=== PATIENT | male | born 1975 | race Caucasian/White ===

== ENCOUNTER → 2025-01-16 | Outpatient (CLI) | payer BC, SELFPAY ==
[2025-01-16 08:57] LABS: Collection Type, Urine Clean Catch
[2025-01-16 09:35] LABS: Basophils # (Auto) 0.1 Thou/mm3 (0.0-0.2); Basophils % (Auto) 1 % (0-2.5); Eosinophils # (Auto) 0.1 Thou/mm3 (0.0-0.5); Eosinophils % (Auto) 1 % (0-10); Hematocrit 46.6 % (41.0-53.0); Hemoglobin 16.0 g/dL (13.5-16.0); Immature Granulocytes Auto 0.04 Thou/mm3 (0.00-0.00); Lymphocytes # (Auto) 1.4 Thou/mm3 (1.0-4.8); Lymphocytes % (Auto) 24 % (10-50); Mean Corpuscular HGB Conc 34.3 g/dl (31.0-37.0); Mean Corpuscular Hemoglobin 30.4 pg (25.0-35.0); Mean Corpuscular Volume 89 fL (80-100); Monocytes # (Auto) 0.5 Thou/mm3 (0.0-0.8); Monocytes % (Auto) 9 % (0-12); Neutrophils # (Auto) 4.0 Thou/mm3 (1.8-7.7); Neutrophils % (Auto) 65 % (37-80); Nucleated Red Blood Cell # 0.00 Thou/mm3 (0.00-0.00); Nucleated Red Blood Cell % 0 /100 WBC (0); Platelet Count 239 Thou/mm3 (140-440); RDW Standard Deviation 40.5 fL (35.1-43.9); Red Blood Count 5.26 Miln/mm3 (4.50-5.90); White Blood Count 6.1 Thou/mm3 (3.8-10.6)
[2025-01-16 09:43] LABS: Bilirubin,Urine Negative (Negative); Blood,Urine Negative (Negative); Clarity,Urine Clear (Clear/Hazy); Color,Urine Yellow (Lt Yel-Yel); Culture Indicated,Urine Not Indicated; Glucose, Urine Negative (Negative); Ketones,Urine Negative (Negative); Leukocyte Esterase,Urine Negative (Negative); Nitrite,Urine Negative (Negative); PH,Urine 6.0 (5.0-7.0); Protein,Urine Trace (Neg - Trace); RBC,Urine 1 /hpf (0-3); Specific Gravity,Urine 1.026 (1.001-1.035); Squamous Epithelial Cell,Urine < 1 /hpf (0-5); Urobilinogen,Urine Negative mg/dL (0.0-1.0); WBC,Urine 2 /hpf (0-5)
[2025-01-16 09:54] LABS: Prostate Specific Antigen 1.77 ng/mL (0-4.00)
[2025-01-16 10:04] LABS: Alanine Aminotransferase 33 U/L (10-49); Albumin, Serum 4.4 gm/dL (3.5-5.0); Albumin/Globulin Ratio 2.2 (1.2-2.2); Alkaline Phosphatase 85 U/L (46-116); Anion Gap 9 (7-16); Aspartate Amino Transferase 24 U/L (0-34); BUN/Creatinine Ratio 12 Ratio (12-20); Bilirubin,Total 0.6 mg/dL (0.3-1.2); Blood Urea Nitrogen 15 mg/dL (9-23); Calcium 10.1 mg/dL (8.3-10.6); Calcium (Corrected) 10.1 mg/dL (8.5-10.1); Carbon Dioxide 28.3 mMol/L (20.0-31.0); Cardiac Risk Estimate 5.7 RATIO (4.0-6.7); Chloride 106 mMol/L (98-107); Cholesterol 252 mg/dL (132-200); Creatinine (Component) 1.3 mg/dL (0.6-1.3); Globulin 2.0 gm/dL (2.3-3.5); Glucose 88 mg/dL (74-106); HDL Cholesterol 44 mg/dL (40-60); LDL Cholesterol,Calculated 185 mg/dL (0-130); Osmolality,Calculated 284 (275-295); Potassium 5.2 mMol/L (3.4-5.1); Sodium 143 mMol/L (136-145); Thyroid Stimulating Hormone 0.68 uIU/mL (0.55-4.78); Total Protein 6.4 gm/dL (5.7-8.2); Triglycerides 117 mg/dL (30-150); Vitamin D 25 Hydroxy Total 33.0 ng/mL (7.3-40.2); eGFR > 60 See Note
[2025-01-29 08:50] LABS: Testosterone, Free,Dialysis 69.7 pg/mL (35.0-155.0); Testosterone, Total, Dialysis 374 ng/dL (250-1100)
== END | disposition home or self-care (01) ==
PROVIDERS: PCP Nurse Practitioner Family; Referring Provider Nurse Practitioner Family; Visit Provider Nurse Practitioner Family
DX: Z00.00 Encounter for general adult medical examination without abnormal findings (principal); E03.9 Hypothyroidism, unspecified; R10.9 Unspecified abdominal pain; E55.9 Vitamin D deficiency, unspecified; Z79.899 Other long term (current) drug therapy; Z13.29 Encounter for screening for other suspected endocrine disorder; Z13.0 Encounter for screening for diseases of the blood and blood-forming organs and certain disorders involving the immune mechanism; E11.9 Type 2 diabetes mellitus without complications; R53.83 Other fatigue; Z12.5 Encounter for screening for malignant neoplasm of prostate; Z13.1 Encounter for screening for diabetes mellitus; N39.0 Urinary tract infection, site not specified
CPT/HCPCS: 36415; 80053; 80061; 81001; 82306; 84153; 84402; 84403; 84443; 85025

== ENCOUNTER → 2025-01-24 | Outpatient (CLI) | payer BC, SELFPAY ==
[2025-01-29 09:00] LABS: Fecal Globin Result NOT DETECTED (NOT DETECTED)
== END | disposition home or self-care (01) ==
LOC: SLDO 08:22
PROVIDERS: Referring Provider Nurse Practitioner Family; Visit Provider Nurse Practitioner Family
DX: Z00.00 Encounter for general adult medical examination without abnormal findings (principal); R10.9 Unspecified abdominal pain; Z13.0 Encounter for screening for diseases of the blood and blood-forming organs and certain disorders involving the immune mechanism; Z13.29 Encounter for screening for other suspected endocrine disorder; Z12.5 Encounter for screening for malignant neoplasm of prostate; N39.0 Urinary tract infection, site not specified; E03.9 Hypothyroidism, unspecified; E11.9 Type 2 diabetes mellitus without complications; R53.83 Other fatigue
CPT/HCPCS: 82274; G0328

== ENCOUNTER → 2025-01-24 | Outpatient (CLI) | payer BC, SELFPAY ==
[2025-01-24 11:49] LABS: Collection Type, Urine Clean Catch; Squamous Epithelial Cell,Urine 0 /hpf (0-5)
--- NOTE | 2025-01-24 12:05 | XR_ITS ---
Examination: CT abdomen and pelvis without contrast. Coronal 3-D reconstructions. Sagittal 2-D reconstructions. Date and time of exam:January 24, 2025 1222 hours INDICATIONS: Generalized abdominal pain beginning one week ago, comparison 01/29/2013 CTDI: vol (mGy): 8.62 DLP: (mGycm): 529 Technique: Axial images of the abdomen have been obtained, 3 mm slice thickness Intravenous contrast material has not been administered. Low dose protocols were performed. One or more of the following dose reduction techniques were used; automated exposure control, adjustment of the mA and/or KV according to patient size, use of iterative reconstruction technique. Findings: No focal liver or splenic lesions Absent gallbladder Focal area of fat inflammation in the anterior left abdomen, axial image 82, measuring 30 mm No renal or ureteral calculi, no hydronephrosis Normal appendix No bowel obstruction No diverticulitis Intact urinary bladder, urinary bladder wall thickening up to 10 mm Transverse prostate dimension 55 mm Moderate disc narrowing L5-S1 IMPRESSION: Focal area of fat inflammation in the anterior left abdomen, 30 mm, recommend one-week follow-up CT scan abdomen pelvis post contrast Urinary bladder wall thickening up to 10 mm, consider cystitis
[2025-01-24 12:07] LABS: Basophils # (Auto) 0.1 Thou/mm3 (0.0-0.2); Basophils % (Auto) 1 % (0-2.5); Eosinophils # (Auto) 0.1 Thou/mm3 (0.0-0.5); Eosinophils % (Auto) 1 % (0-10); Hematocrit 46.4 % (41.0-53.0); Hemoglobin 15.6 g/dL (13.5-16.0); Immature Granulocytes Auto 0.04 Thou/mm3 (0.00-0.00); Lymphocytes # (Auto) 1.5 Thou/mm3 (1.0-4.8); Lymphocytes % (Auto) 23 % (10-50); Mean Corpuscular HGB Conc 33.6 g/dl (31.0-37.0); Mean Corpuscular Hemoglobin 30.2 pg (25.0-35.0); Mean Corpuscular Volume 90 fL (80-100); Monocytes # (Auto) 0.5 Thou/mm3 (0.0-0.8); Monocytes % (Auto) 7 % (0-12); Neutrophils # (Auto) 4.4 Thou/mm3 (1.8-7.7); Neutrophils % (Auto) 67 % (37-80); Nucleated Red Blood Cell # 0.00 Thou/mm3 (0.00-0.00); Nucleated Red Blood Cell % 0 /100 WBC (0); Platelet Count 241 Thou/mm3 (140-440); RDW Standard Deviation 40.7 fL (35.1-43.9); Red Blood Count 5.17 Miln/mm3 (4.50-5.90); White Blood Count 6.5 Thou/mm3 (3.8-10.6)
[2025-01-24 12:16] LABS: Bilirubin,Urine Negative (Negative); Blood,Urine Negative (Negative); Clarity,Urine Clear (Clear/Hazy); Color,Urine Colorless (Lt Yel-Yel); Glucose, Urine Negative (Negative); Ketones,Urine Negative (Negative); Leukocyte Esterase,Urine Negative (Negative); Nitrite,Urine Negative (Negative); PH,Urine 6.5 (5.0-7.0); Protein,Urine Negative (Neg - Trace); RBC,Urine < 1 /hpf (0-3); Specific Gravity,Urine 1.008 (1.001-1.035); Urobilinogen,Urine Negative mg/dL (0.0-1.0); WBC,Urine 1 /hpf (0-5)
[2025-01-24 12:29] LABS: Alanine Aminotransferase 24 U/L (10-49); Albumin, Serum 4.4 gm/dL (3.5-5.0); Albumin/Globulin Ratio 1.8 (1.2-2.2); Alkaline Phosphatase 91 U/L (46-116); Anion Gap 11 (7-16); Aspartate Amino Transferase 21 U/L (0-34); BUN/Creatinine Ratio 8 Ratio (12-20); Bilirubin,Total 0.6 mg/dL (0.3-1.2); Blood Urea Nitrogen 9 mg/dL (9-23); Calcium 10.1 mg/dL (8.3-10.6); Calcium (Corrected) 10.1 mg/dL (8.5-10.1); Carbon Dioxide 27.3 mMol/L (20.0-31.0); Chloride 105 mMol/L (98-107); Creatinine (Component) 1.1 mg/dL (0.6-1.3); Globulin 2.5 gm/dL (2.3-3.5); Glucose 89 mg/dL (74-106); Osmolality,Calculated 282 (275-295); Potassium 4.2 mMol/L (3.4-5.1); Sodium 143 mMol/L (136-145); Total Protein 6.9 gm/dL (5.7-8.2); eGFR > 60 See Note
== END | disposition home or self-care (01) ==
PROVIDERS: PCP Nurse Practitioner Family; Referring Provider Nurse Practitioner Family; Visit Provider Nurse Practitioner Family
DX: N32.89 Other specified disorders of bladder (principal); Z00.00 Encounter for general adult medical examination without abnormal findings; Z13.89 Encounter for screening for other disorder; N39.0 Urinary tract infection, site not specified; R53.83 Other fatigue
CPT/HCPCS: 36415; 74176; 80053; 81001; 85025; 87086

== ENCOUNTER 2025-02-13 09:10 | Inpatient (IN) | payer OTHER, SELFPAY ==
[2025-02-13] VITALS (10 sets, daily range): BP systolic 109–140; BP diastolic 78–97; PULSE 70–85; RESP 13–97; TEMP 36.1–36.9; O2SAT 95–100; BMI 26.2; BMI 27.0
--- NOTE | 2025-02-13 | XR_ITS ---
Examinations: MRI Brain without intravenous contrast. MRA brain without intravenous contrast. MRA carotids without intravenous contrast 3-D vascular reconstructions Date and time of exam: January 20232024 1620 hours INDICATIONS: Stroke alert today, onset left-sided facial and upper extremity numbness Technique: Multiple axial and sagittal images of the brain have been obtained MRA brain carotid images without contrast obtained, including 3-D postprocessing, vascular maximum intensity projection images Findings: Sellaturcica is not enlarged. The optic chiasm and infundibular stalk are not remarkable. Prepontine and interpeduncular cisterns are not enlarged. No localized enlargement of the medulla or christopher. Fourth ventricle and cerebellar tonsils normal in position. Subacute hemorrhage is not seen. Fourth ventricle is midline. Mass in the cerebellopontine angle region is not evident. 7th and 8th nerve complexes exhibits symmetry. Globes are symmetrical with no retro-orbital mass. Increased white matter signal not present Diffusion-weighted images demonstrate no focus of restricted diffusion Mass-effect upon the ventricular system is not identified. MRA carotid images are degraded by artifacts MRA brain images no large vessel occlusions Impression: Negative for acute hemorrhage, mass effect or midline shift No acute infarcts No findings diagnostic for demyelinating disease
--- NOTE | 2025-02-13 09:15 | EKG_ITS ---
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
--- NOTE | 2025-02-13 09:16 | XR_ITS ---
Examination: AP chest single view Technique one AP portable upright chest single view Date and time: February 13, 2025 1011 hours, comparison 01/30/2013 INDICATIONS: Stroke alert today FINDINGS: Normal heart size. No aspiration pneumonia. The osseous structures are intact IMPRESSION: No active disease
--- NOTE | 2025-02-13 09:16 | XR_ITS ---
Examination: CTA carotids with intravenous contrast CTA brain, head with intravenous contrast. 2-D sagittal, coronal reconstructions. 3-D reconstructions. Exam date and time: February 13, 2025, 0935 hours INDICATIONS: Stroke alert, bilateral facial numbness today CTDI: vol (mGy) 39 DLP: (mGycm) 484 Technique: Multiple CTA axial brain, head carotid images post intravenous contrast injection 75 cc, Isovue-370. 2-D sagittal, coronal reconstructions. 3-D reconstructions, 3-D post processing including vascular maximum intensity projection images. Low dose protocols were performed. One or more of the following dose reduction techniques were used; automated exposure control, adjustment of the mA and/or KV according to patient size, use of iterative reconstruction technique. Findings: No significant common carotid carotid bifurcation or internal carotid artery stenoses Dominant left vertebral artery in the neck, no critical vertebral artery stenoses Intracranial vertebral arteries basilar artery posterior cerebral branches fill without occlusions Juxtasellar portions internal carotid arteries intact M1 segments middle cerebral arteries middle cerebral artery trifurcation vessels and anterior cerebral arteries fill with no large vessel occlusions IMPRESSION: No significant neck arterial stenoses No cerebral large chest arterial occlusions or thrombus
--- NOTE | 2025-02-13 09:16 | XR_ITS ---
Examination: CT brain head without contrast. 2-D sagittal coronal reconstructions Date and time of exam:February 13, 2025 0930 hours INDICATIONS: Stroke alert, onset bilateral facial numbness today CTDI: vol (mGy):52 DLP: (mGycm):1057 Technique: Multiple CT axial sections of the brain have been obtained, 5 mm slice thickness. Contrast has not been administered. 2-D sagittal, coronal reconstructions have been obtained Low dose protocols were performed. One or more of the following dose reduction techniques were used; automated exposure control, adjustment of the mA and/or KV according to patient size, use of iterative reconstruction technique. Findings: No significant ventricular enlargement. Intra-axial or extra-axial hemorrhage density is not seen. No mass effect or midline shift Basal cisterns are not remarkable. Fourth ventricle is midline. Cranial vault intact. Impression: Negative for acute hemorrhage, mass effect or midline shift
--- NOTE | 2025-02-13 09:17 | XR_ITS ---
Examination: CTA chest, with intravenous contrast. CTA abdomen, with intravenous contrast. CTA pelvis, with intravenous contrast. 2-D sagittal and coronal reconstructions. 3-D reconstructions. Date and time of exam: February 13, 2025, 0942 hours INDICATIONS: Coughing shortness of breath congestion, abdominal pain today CTDI vol (mgy) 20.7 DLP (MGycm) 929 Technique: Multiple CTA images, 2.0 mm slice thickness, obtained chest, abdomen, pelvis, with the high-resolution 64 slice scanner. 100 cc Isovue-370 is administered intravenously. Sagittal and coronal 2-D reconstructions are obtained. 3-D reconstructions, angiographic images are obtained. 3-D postprocessing, including vascular maximum intensity projections. Low dose protocols were performed. One or more of the following dose reduction techniques were used; automated exposure control, adjustment of the mA and/or KV according to patient size, use of iterative reconstruction technique. Findings: No thoracic aortic aneurysmal dilatation or dissection Pulmonary artery segments are not enlarged. No pulmonary artery emboli No paratracheal tracheobronchial or bronchopulmonary adenopathy. No coronary artery calcification. No pneumonia or pulmonary edema or pleural disease No visualized liver or splenic lesion Mild splenomegaly AP dimension 13 cm Absent gallbladder No extra hepatic biliary tract dilatation No pancreatic mass No abdominal aortic aneurysm dilatation or dissection No hydronephrosis No bowel obstruction Normal appendix No diverticulitis Normal seminal vesicles No prostatomegaly No bladder mass or bladder calculi Mild osteopenia IMPRESSION: Negative for pulmonary artery emboli No thoracic or abdominal aortic aneurysm dilatation or dissection No pneumonia, pulmonary edema or pleural disease. Mild splenomegaly. No extrahepatic biliary tract dilatation. Negative for pancreatitis No renal or ureteral calculi, no hydronephrosis Normal appendix
--- NOTE | 2025-02-13 09:17 | EDNOTE_ITS ---
ED Weakness RME/HPI General Chief complaint: Shortness of Breath/Dyspnea Stated complaint: CHEST PAIN, SOB, LT ARM NUMBNESS Time Seen by Provider: 02/13/25 09:14 Arrival date/time: 02/13/25 09:10 Limitations: no limitations RME / HPI RME / HPI Narrative: Patient is a 49-year-old male is in emerged from concerns for left-sided facial and upper extremity numbness started approximately 10 minutes prior to patient also complaining of chest pain and difficulty catching his breath. Denies fevers chills nausea vomiting cough runny nose dysuria hematuria melena bloody stools. Patient states that he spoke to his primary care doctor, and was told to come to the emergency department for stroke evaluation. Patient states that he has also had some abdominal discomfort that he has been in the process of being worked up with with his primary care doctor. 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 Patient chews tobacco. No smoking, no alcohol no drugs. No recent travel no sick contact. Related Data Home Medications ?Medication ?Instructions ?Recorded ?Confirmed alprazolam 0.5 mg tablet 0.5 mg PO BID PRN anxiety 02/13/25 atorvastatin 10 mg tablet 10 mg PO QDAY 02/13/2502/13 Allergies Allergy/AdvReac Type Severity Reaction Status Date / Time No Known Allergies Allergy Unverified 02/13/25 09:16 Review of Systems Review of Systems Systems Reviewed: All systems reviewed, normal except as documented Past Medical History Past Medical History CARDIAC: Positive Hypercholesterolemia GASTROINTESTINAL: Positive Gastrointestinal Disorders (INFLAMMATED BOWEL) and Pancreatitis Social History SMOKING STATUS: Never smoker ED Exam General Limitations: Present no limitations General appearance: Present alert, in no apparent distress and other Head Head exam: Present atraumatic and normocephalic Eye Eye exam: Present normal appearance, PERRL and EOMI ENT ENT exam: Present normal exam, normal oropharynx and mucous membranes moist Neck Neck exam: Present normal inspection and full ROM; Absent meningismus Chest Chest inspection: Present normal inspection and symmetric chest wall rise Respiratory Respiratory exam: Present normal lung sounds bilaterally; Absent respiratory distress, wheezes, stridor or accessory muscle use Cardiovascular Cardiovascular exam: Present normal rhythm Abdominal Exam Abdominal exam: Present soft; Absent distention, tenderness or guarding Extremities Exam Extremities exam: Present normal inspection and full ROM; Absent tenderness Neurological Exam Neurological exam: Present alert, oriented X3, CN II-XII intact, normal gait and motor sensory deficit (Decree sensation left face, left upper left lower extremity. 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 NOW Care 02/13/25 09:16 Active Continuous Pulse Oximetry NOW Care 02/13/25 09:16 Completed EKG (ED ONLY) *Do not use* NOW Care 02/13/25 09:15 Completed In and Out Catheter NEEDED Care 02/13/25 09:16 Active Insert IV NOW Care 02/13/25 09:16 Active NIH Stroke Scale now Care 02/13/25 09:16 Active NPO NOW Care 02/13/25 09:16 Active Neuro Check Q1HR Care 02/13/25 09:16 Active Nurse Swallow Screen x1 Care 02/13/25 09:16 Active Consult to Neurology / Tele-Neurology Routine Cons 02/13/25 09:[address] angio chest abdomen pelvis Stat Exams 02/13/25 09:[address] angio stroke protocol Stat Exams 02/13/25 09:[address] stroke protocol Stat Exams 02/13/25 09:16 Completed EKG (ED Only) Stat Exams 02/13/25 09:15 Draft XR chest 1V portable Stat Exams 02/13/25 09:16 Completed BNP [B-Type Natriuretic Peptide] Stat Lab 02/13/25 09:23 Completed CBC Stat Lab 02/13/25 09:23 Completed Comprehensive Metabolic Panel Stat Lab 02/13/25 09:23 Completed Drug Screen,Urine Stat Lab 02/13/25 11:00 Completed FLU A&B [Influenza A & B Rapid Panel] Stat Lab 02/13/25 11:26 Completed Magnesium Stat Lab 02/13/25 09:23 Completed Partial Thromboplastin Time Stat Lab 02/13/25 09:23 Completed Prothrombin Time with INR Stat Lab 02/13/25 09:23 Completed Troponin I Stat Lab 02/13/25 09:23 Completed Urinalysis, C/S if Indicated Stat Lab 02/13/25 11:00 Completed Aspirin Chew Med 02/13/25 09:15 Discontinued 162 mg PO X1 ONE Oxygen Delivery NOW RT 02/13/25 09:16 Completed Vital Signs Vital signs: Vital Signs Pulse Rate 84 02/13/25 09:23 Weakness MDM Narrative MDM Narrative:: Patient is a 49-year-old male seen emerged from concerns for left-sided body numbness as well as chest pain. Vital signs and exam as listed. Concern for stroke, ACS, arrhythmia, pulmonary embolus, dissection among others. Ordered labs, EKG, chest x-ray, CT angio chest abdomen pelvis. Also ordered stroke alert order set. Also provided an aspirin given patient's chest pain as well as stat EKG. EKG performed today at 919 in the morning, notable for sinus tachycardia, heart rate 102, normal intervals, nonspecific T wave changes, not a cardiac alert. Labs without any acute hematologic or significant metabolic abnormality, troponin not elevated. Urinalysis without evidence of infection. Drug screen negative. Viral swabs negative. Head CT, CT angio of the head and neck as well as chest abdomen pelvis unremarkable. Patient was evaluated by the teleneurologist, gave patient NIH of 1. Does not recommend tenecteplase however recommends admission for stroke workup. On reevaluation patient hemodynamically stable nondistressed feels better no longer having numbness to his left upper extremity. Patient admitted to the hospitalist service. He is hemodynamically stable not in distress updated patient and his family at bedside. Patient data External records reviewed:: [facility] previous records Clinical information provided by:: patient Social determinants that could affect healthcare access:: none Patient has the following chronic illnesses:: see mdm How is presenting disease/condition affected by chronic disease/condition?: exacerbated by Evaluation data The following diagnostics were reviewed and interpreted by me:: lab results, radiology exam(s) and EKG tracing(s) Lab and/or radiology exams considered but not ordered:: None Interpretation Summary: See Medications / Prescriptions Medications or Prescriptions considered but not ordered:: None Medication administrations:: Medication Administration History Acetaminophen (Acetaminophen 325 Mg Tablet) 650 mg PO Q6H PRN PRN Reason: Fever >100.1 and pain 1-3 Stop: 03/15/25 13:47 Aspirin (Aspirin Ec 81 Mg Tabec) 81 mg PO QDAY KHARI Stop: 03/16/25 08:59 Atorvastatin Calcium (Atorvastatin Calcium 20 Mg Tablet) 40 mg PO HS KHARI Stop: 03/15/25 20:59 Heparin Sodium (Porcine) (Heparin Sod Inj 5000 Unit/Ml Vial) 5,000 unit SC Q12HR KHARI Stop: 02/27/25 20:59 Magnesium Sulfate (Magnesium Sulfate Ivpb) 4 gm in 50 mls @ 12.5 mls/hr IV X1 ONE Stop: 02/13/25 19:29 Nicotine (Nicotine Patch 7 Mg/24 Hr Patch.Td24) 7 mg TOP QDAY KHARI Stop: 03/16/25 08:59 Discontinued Medications Acetaminophen (Acetaminophen 325 Mg Tablet) 650 mg PO Q6H PRN PRN Reason: Fever >101.5 and pain 1-3 Stop: 03/15/25 13:47 Aspirin (Aspirin 81 Mg Chew) 162 mg PO X1 ONE Stop: 02/13/25 09:16 Last Admin: 02/13/25 09:21 Dose: 162 mg Documented By: VL See above Consultations Consultation(s) initiated? (list below): Yes Consultation #1 (Physician, Specialty, Details): I spoke with teleneurologist Dr. Yeh. States patients lkwt is above 4.5h and out of TNK window. Time: 09:54 Diagnosis Weakness Differential Diagnosis: anemia, hypothyroidism, sepsis, dehydration and other (CVA, TIA ) Most likely diagnosis given after review of the tests above:: Left sided numbness Chest pain Admission Indicated Admission indicated?: indicated Admission Request Was there a request for admission?: Yes Admission Attestation Admission request attestation: Discussed case with Hospitalist service regarding admission. Discussed patients ED course, exam findings, labs, and radiology results. The Hospitalist [agrees] to accept the patient for admission. Disposition Plan Disposition Plan: Admit Critical Care Time Critical Care Time Critical Care Time: Yes Total Critical Care Time (min.): 30 Attestation: I spent 30 minutes of critical care time with this patient not including reportable procedures. There was an acute impairment of an organ system with a high probability of imminent or life threatening deterioration in the patient's condition. Interventions and changes required in the course of therapy are located in the chart. Time involved was spent in direct patient care, reviewing ancillary data, old records, consulting with decision makers, EMS, other docto rs, giving orders and documenting. Discharge Plan Plan Patient Disposition: Admit Acute Care w/in Hospital Problem List Clinical Impression: Left sided numbness, Chest pain
[2025-02-13] MEDS: ASPIRIN 81 MG CHEW 162 MG PO (09:21)
[2025-02-13 09:35] LABS: Basophils # (Auto) 0.0 Thou/mm3 (0.0-0.2); Basophils % (Auto) 1 % (0-2.5); Eosinophils # (Auto) 0.1 Thou/mm3 (0.0-0.5); Eosinophils % (Auto) 1 % (0-10); Hematocrit 46.3 % (41.0-53.0); Hemoglobin 15.9 g/dL (13.5-16.0); Immature Granulocytes Auto 0.03 Thou/mm3 (0.00-0.00); Lymphocytes # (Auto) 1.5 Thou/mm3 (1.0-4.8); Lymphocytes % (Auto) 26 % (10-50); Mean Corpuscular HGB Conc 34.3 g/dl (31.0-37.0); Mean Corpuscular Hemoglobin 30.2 pg (25.0-35.0); Mean Corpuscular Volume 88 fL (80-100); Monocytes # (Auto) 0.4 Thou/mm3 (0.0-0.8); Monocytes % (Auto) 7 % (0-12); Neutrophils # (Auto) 3.6 Thou/mm3 (1.8-7.7); Neutrophils % (Auto) 64 % (37-80); Nucleated Red Blood Cell # 0.00 Thou/mm3 (0.00-0.00); Nucleated Red Blood Cell % 0 /100 WBC (0); Platelet Count 216 Thou/mm3 (140-440); RDW Standard Deviation 39.4 fL (35.1-43.9); Red Blood Count 5.27 Miln/mm3 (4.50-5.90); White Blood Count 5.6 Thou/mm3 (3.8-10.6)
[2025-02-13 09:47] LABS: B-Type Natriuretic Peptide < 20 pg/mL (0-100)
[2025-02-13 09:48] LABS: Alanine Aminotransferase 48 U/L (10-49); Albumin, Serum 4.7 gm/dL (3.5-5.0); Albumin/Globulin Ratio 2.1 (1.2-2.2); Alkaline Phosphatase 99 U/L (46-116); Anion Gap 7 (7-16); Aspartate Amino Transferase 26 U/L (0-34); BUN/Creatinine Ratio 9 Ratio (12-20); Bilirubin,Total 0.8 mg/dL (0.3-1.2); Blood Urea Nitrogen 10 mg/dL (9-23); Calcium 9.6 mg/dL (8.3-10.6); Calcium (Corrected) 9.6 mg/dL (8.5-10.1); Carbon Dioxide 26.3 mMol/L (20.0-31.0); Chloride 106 mMol/L (98-107); Creatinine (Component) 1.1 mg/dL (0.6-1.3); Globulin 2.2 gm/dL (2.3-3.5); Glucose 109 mg/dL (74-106); Magnesium 1.7 mg/dL (1.6-2.6); Osmolality,Calculated 277 (275-295); Potassium 4.0 mMol/L (3.4-5.1); Sodium 139 mMol/L (136-145); Total Protein 6.9 gm/dL (5.7-8.2); Troponin I < 0.002 ng/mL (0.0-0.045); eGFR > 60 See Note
--- NOTE | 2025-02-13 09:55 | PD.TNEURO ---
Tele Neuro Consultation Consultation Date 02/13/25 Most Recent Vital Signs Last Vital Signs Pulse 84 02/13/25 09:23 Consultation Narrative [facility] Tele[facility]urology Consult [facility] Patient Name:???NUZHAT SILVA Date of :???1975 Identification Number:??? Date of Service:???02/13/2025 09:40:14 Diagnosis:?R20.2 - Paresthesia of skin Impression: ?49 y/o man with h/o hyperlipidemia and anxiety, panic attacks presents to the ED chest pain, shortness of breath and left sided tingling and numbness. NIHSS 1 for left arm numbness. Chest pain and dissection work-up in progress. Our recommendations are outlined below. Recommendations: ? Stroke/Telemetry Floor ? Neuro Checks ? Bedside Swallow Eval ? DVT Prophylaxis ? IV Fluids, Normal Saline ? Head of Bed 30 Degrees ? Euglycemia and Avoid Hyperthermia (PRN Acetaminophen) ?ASA 81 if no contraindication Sign Out: ? Discussed with Emergency Department Provider Advanced Imaging: Advanced Imaging Deferred because: Advanced Imaging not obtained at this time. Reason: Case discussed with Dr. Daniel. NIHSS 1. Low suspicion for LVO given the clinical presentation and current clinical exam. Can reconsider advanced neuroimaging if patient's symptoms recur or worsen or develops new symptoms. Cardiopulmonary work-up to take precedence as per my discussion with Dr. Darnell Metrics: Last Known Well: 02/12/2025 23:00:00 Dispatch Time: 02/13/2025 09:39:13 Arrival Time: 02/13/2025 09:11:00 Initial Response Time: 02/13/2025 09:41:35Symptoms: chest pain, shortness of breath and left sided tingling and numbness. Initial patient interaction: 02/13/2025 09:45:24 NIHSS Assessment Completed: 02/13/2025 09:49:55Patient is not a candidate for Thrombolytic. Thrombolytic Medical Decision: 02/13/2025 09:49:56Patient was not deemed candidate for Thrombolytic because of following reasons: LKW outside 4.5 hr window. . other diagnosis suspected patient reports chest pain (dissection work-up in progress). CT Head: I personally reviewed all the CT images that were available to me and it showed: No acute hemorrhage. No large territory acute ischemic stroke. Primary Provider Notified of Diagnostic Impression and Management Plan on: 02/13/2025 09:54:42 History of Present Illness:Patient is a 49 year old Male. Patient was brought by private transportation with symptoms of chest pain, shortness of breath and left sided tingling and numbness. 49 y/o man with h/o hyperlipidemia and anxiety, panic attacks presents to the ED chest pain, shortness of breath and left sided tingling and numbness. Emergent telestroke consult requested. He reports he woke up this morning not feeling well. Last known well at 2300 as per the patient. He reports he similar episodes with panic attacks. He reports multiple episodes over the past month. He reports he was worked up at outside hospital in [place], but was not given a cause. NIHSS 1 for left arm numbness. CT brain reviewed and case discussed with the ED attending (Dr. Daniel). Past Medical History: Other PMH:? as per HPI Medications: No Anticoagulant use? No Antiplatelet use Reviewed EMR for current medications Allergies:? NKDA Social History: Smoking: Former Alcohol Use: No Drug Use: No Family History: There is no family history of premature cerebrovascular disease pertinent to this consultation ROS : 14 Points Review of Systems was performed and was negative except mentioned in HPI. Past Surgical History: There Is No Surgical History Contributory To Today?s Visit Examination: BP(140/97),?Pulse(94),?Blood Glucose(110) 1A: Level of Consciousness - Alert; keenly responsive?+ 0 1B: Ask Month and Age - Both Questions Right?+ 0 1C: Blink Eyes & Squeeze Hands - Performs Both Tasks?+ 0 2: Test Horizontal Extraocular Movements - Normal?+ 0 3: Test Visual Lind - No Visual Loss?+ 0 4: Test Facial Palsy (Use Grimace if Obtunded) - Normal symmetry?+ 0 5A: Test Left Arm Motor Drift - No Drift for 10 Seconds?+ 0 5B: Test Right Arm Motor Drift - No Drift for 10 Seconds?+ 0 6A: Test Left Leg Motor Drift - No Drift for 5 Seconds?+ 0 6B: Test Right Leg Motor Drift - No Drift for 5 Seconds?+ 0 7: Test Limb Ataxia (FNF/Heel-Fitch) - No Ataxia?+ 0 8: Test Sensation - Mild-Moderate Loss: Less Sharp/More Dull?+ 1 9: Test Language/Aphasia - Normal; No aphasia?+ 0 10: Test Dysarthria - Normal?+ 0 11: Test Extinction/Inattention - No abnormality?+ 0 NIHSS Score:?1 Pre-Morbid Modified [place] Scale: 0 Points = No symptoms at all Spoke with :?Dr. Daniel This consult was conducted in real time using interactive audio and video technology. Patient was informed of the technology being used for this visit and agreed to proceed. Patient located in hospital and provider located at home/office setting. Patient is being evaluated for possible acute neurologic impairment and high probability of imminent or life-threatening deterioration. I spent total of 18 minutes providing care to this patient, including time for face to face visit via telemedicine, review of medical records, imaging studies and discussion of findings with providers, the patient and/or family. Dr Eliecer Yeh [facility] For Inpatient follow-up with [facility] physician please call [facility] at . As we are not an outpatient service for any post hospital discharge needs please contact the hospital for assistance. If you have any questions for the [facility] physicians or need to reconsult for clinical or diagnostic changes please contact us via [facility] at . Signature :?Eliecer Yeh
[2025-02-13 10:23] LABS: INR 1.0 (0.9-1.3); Partial Thromboplastin Time 28.6 Seconds (22.0-36.0); Prothrombin Time 11.2 Seconds (9.0-12.2)
--- NOTE | 2025-02-13 11:05 | PC.NURSE ---
PATIENT WALKED IN TO ED FOR SHORTNESS OF BREATH, NUMBNESS IN FACE AND LEFT ARM AND DIZZINESS THAT STARTED AT 0850ISH. PATIENT STATES HE TOOK A XANAX BEFORE HE CAME IN DUE TO POSSIBLE ANXIETY ATTACK. PATIENT VITALS STABLE. STROKE ALERT INITIATED AT 0922. PATIENT STATES SYMPTOMS HAVE NOW RESOLVED MOSTLY BUT STILL A LITTLE NUMB PATIENT ALERT AND ORIENTED X4.
[2025-02-13 11:09] LABS: Collection Type, Urine Clean Catch; Squamous Epithelial Cell,Urine 0 /hpf (0-5); WBC,Urine 0 /hpf (0-5)
[2025-02-13 11:16] LABS: Bilirubin,Urine Negative (Negative); Blood,Urine Negative (Negative); Clarity,Urine Clear (Clear/Hazy); Color,Urine Colorless (Lt Yel-Yel); Culture Indicated,Urine Not Indicated; Glucose, Urine Negative (Negative); Ketones,Urine Negative (Negative); Leukocyte Esterase,Urine Negative (Negative); Nitrite,Urine Negative (Negative); PH,Urine 7.0 (5.0-7.0); Protein,Urine Negative (Neg - Trace); RBC,Urine < 1 /hpf (0-3); Specific Gravity,Urine 1.032 (1.001-1.035); Urobilinogen,Urine Negative mg/dL (0.0-1.0)
[2025-02-13 11:23] LABS: Amphetamine/Methamp Scrn,U Negative (Negative); Barbiturate Screen,Urine Negative (Negative); Benzodiazepines Screen,Urine Negative (Negative); Benzoylecgonine Screen, Ur Negative (Negative); Fentanyl Screen,Urine Negative (Negative); Opiate Screen,Urine Negative (Negative); THC Screen,Urine Negative (Negative)
[2025-02-13 12:17] LABS: Influenza A Ag Negative; Influenza B Ag Negative
--- NOTE | 2025-02-13 14:07 | PD.RESCONSUL ---
HPI Data of Consult Consult date: 02/13/25 Primary Care Provider: Physician No Primary/Family Consult Narrative Reason for consult: stroke w/up History of present illness: This patient is a 49-year-old male with past medical history of hyperlipidemia and anxiety presented to the ED on 02/13/2025 with chief complaint of chest pain, shortness of breath and left-sided tingling and numbness. Patient has a history of panic attacks and reported that he had similar episodes before. He also got worked up outside hospital in [place] but was not given a cause. NIH score on arrival was 1. Low suspicion for LVO was given the clinical presentation and current clinical exam. Last well-known time 23:00. Arrival time 9:11. Patient was not deemed candidate for thrombolytic because of LKW outside 4.5-hour window. Patient stated that 3 weeks ago he had a anxiety attack in [place] where he was given Xanax. He has been seeing a chiropractor sooner for his joint problems including ribs and left hip. He also informed that he had an abdominal infection for which he was due for colonoscopy and ultrasound due to sharp abdominal pain without any bowel problems. His PCP is Kat. He stated that numbness started in left arm and left face lasting for 1 to 2 hours and has subsided now. He stated that he had a history of pancreatitis in the past in 2003. He received testosterone injections due to lack of energy last year. He does have a history of humeral fracture but did not had any surgery. Past medical history as above Past surgical history: Achilles tendon repair, cholecystectomy 2011 SH: Use nicotine pouch 3 mg 6 times a day, drinks alcohol occasionally. No history of illicit drug use. Allergies: NKDA Family history: Grandfather had cancer unknown. Home medications: Metamucil 3 tablets daily, Lipitor, Flexeril once at night, Xanax as needed ED course: Labs revealed hemoglobin stable. Chemistry panel unremarkable. Kidney function remained stable. Chest x-ray showed no active disease. Head CT was unremarkable. Head and neck CTA was negative for neck arterial stenosis or cerebral large arterial occlusion. CTA only showed mild splenomegaly. EKG showed sinus tachycardia with QTc 448. No acute ST-T changes. Aspirin 162 mg x 1 was given. MRI brain only showed chronic white matter changes and is negative for stroke. Pending echo.Notify provider if SBP greater than 220 and DBP greater than 120 in first 24 hours. Recommended to continue statin therapy and DC aspirin as less likely to be stroke. cc:: cc: Review of Systems Review of Systems Systems Reviewed: All systems reviewed, normal except as documented Past Medical History Past Medical History CARDIAC: Positive Hypercholesterolemia GASTROINTESTINAL: Positive Gastrointestinal Disorders (INFLAMMATED BOWEL) and Pancreatitis Social History SMOKING STATUS: Never smoker Exam Vital Signs Temp Pulse Resp BP Pulse Ox O2 Del Method 97.8 F 74 15 109/88 H 98 Room Air 02/13/25 12:36 02/13/25 12:36 02/13/25 12:36 02/13/25 12:36 02/13/25 12:36 02/13/25 12:36 Narrative Exam GENERAL APPEARANCE: AxOx4, generally well-appearing male no acute distress. HEENT: NC, AT. MMM. EOMI, clear conjunctiva, oropharynx clear. NECK: Supple without lymphadenopathy. No stiffness or restricted ROM. HEART: Sinus tachycardia with regular rhythm, normal S1/S2, grade I systolic murmur heard in aortic region LUNGS: CTAB, moving air well. No crackles or wheezes are heard. ABDOMEN: Soft, nontender, nondistended with good bowel sounds heard. BACK: No CVAT, no obvious deformity. EXTREMITIES: Without cyanosis, clubbing or edema. NEUROLOGICAL: Grossly nonfocal. Alert and oriented, moving all 4 extremities. CN not formally tested but appear grossly intact. Observed to ambulate with normal gait. Skin: Warm and dry without any rash. Psych: Mildly anxious with appropriate mood and affect Results Labs 02/13/25 09:23 02/13/25 09:23 Labs: Short CBC 02/13/25 Range/Units 09: WBC 5.6 (3.8-10.6) Thou/mm3 Hgb 15.9 (13.5-16.0) g/dL Hct 46.3 (41.0-53.0) % Plt Count 216 (140-440) Thou/mm3 BMP 02/13/25 09:23 Sodium 139 Potassium 4.0 Chloride 106 Carbon Dioxide 26.3 BUN 10 Creatinine 1.1 Glucose 109 H Calcium 9.6 Cardiac Enzymes 02/13/25 Range/Units 09: Troponin I < 0.002 (0.0-0.045) ng/mL Liver Function 02/13/25 Range/Units 09:23 Total Bilirubin 0.8 (0.3-1.2) mg/dL AST 26 (0-34) U/L ALT 48 (10-49) U/L Alkaline Phosphatase 99 (46-116) U/L Albumin 4.7 (3.5-5.0) gm/dL Urine 02/13/25 Range/Units 11:00 Urine Color Colorless A (Lt Yel-Yel) Urine Clarity Clear (Clear/Hazy) Urine pH 7.0 (5.0-7.0) Ur Specific [employer] 1.032 (1.001-1.035) Urine Protein Negative (Neg - Trace) Urine Glucose (UA) Negative (Negative) Quality Measures Quality Measures stroke Suspected type of Stroke: Non Acute Last known well (date): 02/12/25 Last known well (time): 23:00 Tenecteplase given: Reason(s) Tenecteplase not given: Outside the time window not given Rehab services: PT evaluation ordered VTE Prophylaxis: pharmaceutical Antithrombotic by day 2:: not indicated (describe) Statin ordered: <75 y/o high intensity dose Anticoagulation ordered for A-fib or flutter (current or hx): not indicated Medications Home Medications and Allergies Home Medications ?Medication ?Instructions ?Recorded ?Confirmed ?Type alprazolam 0.5 mg tablet 0.5 mg PO BID PRN anxiety 02/13/25 02/13/25 History atorvastatin 10 mg tablet 10 mg PO QDAY 02/13/25 02/13/25 History Allergies Allergy/AdvReac Type Severity Reaction Status Date / Time No Known Allergies Allergy Unverified 02/13/25 09:16 Visit Medications Acetaminophen (Acetaminophen 325 Mg Tablet) 650 mg PO Q6H PRN PRN Reason: Fever >101.5 and pain 1-3 Stop: 03/15/25 13:47 Aspirin (Aspirin Ec 81 Mg Tabec) 81 mg PO QDAY KHARI Stop: 03/16/25 08:59 Heparin Sodium (Porcine) (Heparin Sod Inj 5000 Unit/Ml Vial) 5,000 unit SC Q12HR KHARI Stop: 02/27/25 20:59 Discontinued Medications Aspirin (Aspirin 81 Mg Chew) 162 mg PO X1 ONE Stop: 02/13/25 09:16 Last Admin: 02/13/25 09:21 Dose: 162 mg Assessment & Plan Plan This patient is a 49-year-old male with past medical history of hyperlipidemia and anxiety presented to the ED on 02/13/2025 with chief complaint of chest pain, shortness of breath and left-sided tingling and numbness. NIHS score on arrival was 1. Admitted for stroke workup. #Workup for stroke Patient presented with numbness and tingling in left arm and left face lasted for 1 to 2 hours associated with chest pain and shortness of breath. NIHSS score 1. Low suspicion for LVO was given the clinical presentation and current clinical exam. Last well-known time 23:00. Arrival time 9:11. Patient was not deemed candidate for thrombolytic because of LKW outside 4.5-hour window. Aspirin 162 mg x 1 given in the ED. Plan: MRI brain only showed chronic white matter changes and is negative for stroke. Pending echo.Notify provider if SBP greater than 220 and DBP greater than 120 in first 24 hours. Recommended to continue statin therapy and DC aspirin as less likely to be stroke. Notify provider if SBP greater than 220 and DBP greater than 120 in first 24 hours #History of hyperlipidemia #History of anxiety with panic attacks #Active nicotine use #History of testosterone injection use for lack of energy #History of disc bulge L4-L5 on Flexeril Rest of the management as per primary care team. Plan of care discussed with neurologist, Dr Eryn Abarca MD, PGY 3 Attending Provider Attestation/Addendum I personally have seen and examined the patient at the bedside and agree with resident findings and assessment and plan of care. Presenting symptoms are most likely consistent with anxiety rather than TIA or stroke. Reassurance given to the patient regarding the negative workup. Patient is advised to continue with statin. He does not need to be on antiplatelet therapy.
--- NOTE | 2025-02-13 15:10 | PD.RESHP ---
Documentation for date of: 02/13/25 HPI History of Present Illness Chief complaint: Left face and arm numbness History of present illness: 49-year-old male with past medical history of anxiety, nicotine use, testosterone use, hyperlipidemia, cholecystectomy status post gallstone pancreatitis presented to the ED on 02/13 with episode of left face and arm numbness. Patient states that symptoms started sometime around 8:30 AM and have been persistent since he has presented to the ED. Patient denies having any changes in vision, hearing or any upper or lower extremity weakness. Of note, patient had similar symptoms about 3 weeks ago and was seen at [facility] at which point he was observed and told that he has anxiety, given Xanax and discharged from the ED. Additionally, patient was seen by chiropractor about 2 weeks ago at which point he was getting an adjustment on his neck and states that he had similar numbness during the adjustment. Patient denies having any family history of stroke but patient's mother at bedside states that patient's uncle from [place] in his 50s. Patient otherwise denies having any other concerning symptoms such as chest pain, shortness of breath, orthopnea, paroxysmal nocturnal dyspnea or lower extremity edema. 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 Labs were largely unremarkable other than glucose of 109, magnesium 1.7, troponin less than 0.002. Urinalysis does not show any signs of infection and U tox is negative. Chest x-ray did not show any active disease, head CT was negative, head/ neck CTA was also negative, CTA chest abdomen pelvis was largely negative other than mild splenomegaly and EKG showed sinus tachycardia without any concerning ST changes. Stroke alert was initiated in the ED as NIHSS score was 1, teleneurology assessed the patient and recommends admission and MRI brain for stroke rule out. Teleneurology did not recommend TNK use as a result of their assessment. Patient will be admitted for stroke rule out with neurology consultation and close monitoring. Exam Vital Signs Temp Pulse Resp BP Pulse Ox O2 Del Method 97.8 F 74 19 127/87 H 98 Room Air 02/13/25 12:36 02/13/25 14:00 02/13/25 14:00 02/13/25 14:00 02/13/25 14:00 02/13/25 14:00 Narrative Exam Physical Exam: GENERAL: Awake, answering questions appropriately, appears stated age HEENT: NC/AT. Moist mucosa. PERRLA/EOMI. CARDIO: Heart RRR, no obvious murmurs, no JVD. PULM: No coughing or visible SOB. Lungs CTA B/L. GI: Abdomen soft, NT/ND, +BS. SKIN/MSK/EXT: No wounds/discoloration/rashes/edema/amputations. +Pedal pulses present B/L. NEURO: Oriented x3, cranial nerves II to XII grossly intact, Moves extremities x4, upper and lower extremity muscle strength 5 out of 5, sensations intact bilaterally with mild diminishing noted on left two thirds of face and left upper extremity Results: Labs 02/14/25 06:15 02/14/25 06:15 Labs: Short CBC 02/13/25 Range/Units 09:23 WBC 5.6 (3.8-10.6) Thou/mm3 Hgb 15.9 (13.5-16.0) g/dL Hct 46.3 (41.0-53.0) % Plt Count 216 (140-440) Thou/mm3 BMP 02/13/25 09:23 Sodium 139 Potassium 4.0 Chloride 106 Carbon Dioxide 26.3 BUN 10 Creatinine 1.1 Glucose 109 H Calcium 9.6 Cardiac Enzymes 02/13/25 Range/Units 09:23 Troponin I < 0.002 (0.0-0.045) ng/mL Liver Function 02/13/25 Range/Units 09:23 Total Bilirubin 0.8 (0.3-1.2) mg/dL AST 26 (0-34) U/L ALT 48 (10-49) U/L Alkaline Phosphatase 99 (46-116) U/L Albumin 4.7 (3.5-5.0) gm/dL Urine 02/13/25 Range/Units 11:00 Urine Color Colorless A (Lt Yel-Yel) Urine Clarity Clear (Clear/Hazy) Urine pH 7.0 (5.0-7.0) Ur Specific [place] 1.032 (1.001-1.035) Urine Protein Negative (Neg - Trace) Urine Glucose (UA) Negative (Negative) Quality Measures Quality Measures stroke Suspected type of Stroke: Non Acute Last known well (date): 02/12/25 Last known well (time): 23:00 Tenecteplase given: Reason(s) Tenecteplase not given: Outside the time window not given Rehab services: PT evaluation ordered VTE Prophylaxis: pharmaceutical Antithrombotic by day 2:: ordered Statin ordered: <75 y/o high intensity dose Anticoagulation ordered for A-fib or flutter (current or hx): not indicated Medications Home Medications and Allergies Home Medications ?Medication ?Instructions ?Recorded ?Confirmed ?Type alprazolam 0.5 mg tablet 0.5 mg PO BID PRN anxiety 02/13/25 02/13/25 History Allergies Allergy/AdvReac Type Severity Reaction Status Date / Time No Known Allergies Allergy Unverified 02/13/25 09:16 Visit Medications Acetaminophen (Acetaminophen 325 Mg Tablet) 650 mg PO Q6H PRN PRN Reason: Fever >100.1 and pain 1-3 Stop: 03/15/25 13:47 Aspirin (Aspirin Ec 81 Mg Tabec) 81 mg PO QDAY KHARI Stop: 03/16/25 08:59 Heparin Sodium (Porcine) (Heparin Sod Inj 5000 Unit/Ml Vial) 5,000 unit SC Q12HR KHARI Stop: 02/27/25 20:59 Discontinued Medications Acetaminophen (Acetaminophen 325 Mg Tablet) 650 mg PO Q6H PRN PRN Reason: Fever >101.5 and pain 1-3 Stop: 03/15/25 13:47 Aspirin (Aspirin 81 Mg Chew) 162 mg PO X1 ONE Stop: 02/13/25 09:16 Last Admin: 02/13/25 09:21 Dose: 162 mg Assessment & Plan Plan 49-year-old male with past medical history of anxiety, nicotine use, testosterone use, hyperlipidemia, cholecystectomy status post gallstone pancreatitis presented with episode of left face and arm numbness will be admitted for stroke rule out with neurology consultation and close monitoring. #Stroke/CVA rule out #Hyperlipidemia Differentials include: Stroke, cervical radiculopathy, trigeminal neuralgia but less likely to be Alexander's palsy, herpes zoster ASCVD score 4.2% Risk of cardiovascular event (coronary or stroke or non-fatal SD or stroke) in next 10 years. As noted above in HPI, patient is presenting with left-sided face and upper extremity numbness which has been on and off for the past 3 weeks Patient does have history of testosterone use in the past On examination, neuro exam is largely negative other than mild diminished sensations in left two thirds of face and left upper extremity In the ED, teleneurology assessed the patient with NIH score of [address] was negative, head/ neck CTA was also negative EKG showed sinus tachycardia without any concerning ST changes Plan: Neurology consulted, appreciate recommendations MRI stroke protocol Initiate aspirin 81 mg daily and atorvastatin 40 at bedtime Echo with bubble study Head of bed greater than 30, keep patient euglycemic and euthermic Every 4 neurochecks Physical therapy consultation #Splenomegaly As seen on CTA chest abdomen pelvis Patient denies having any concerning symptoms, abdominal pain CBC does not show any concerning findings or any elevated cell counts Plan: Follow-up outpatient, continue monitoring #Anxiety #Nicotine use Patient uses oral nicotine Patient is not on any anxiolytics at home, takes Xanax as needed Plan: Nicotine patch as needed Consider anxiolytics if necessary Health Maintenance: Lines: PIV Diet: Regular, pending nurse swallow screen Bowel: Not needed GI prophylaxis: Not needed DVT prophylaxis: Heparin subcu Dispo: Pending stroke workup, MRI and echo with bubble study Code: Full Patient seen and assessed with attending Dr. Evens Benavides DO PGY-2 Internal Medicine - [facility] Attending Provider Attestation/Addendum I have discussed and was present for the essential components of the history, physical examination, diagnosis, and treatment plan with the resident. I agree with the patient's care as documented by the resident and amended herein by me. Ashu Horner DO. Although this document has been carefully reviewed, there may still be some phonetic and other typographical errors. These errors are purely grammatical due to imperfections in the software program and should not be construed in any way to compromise the substance of the patient's medical care during this visit.
--- NOTE | 2025-02-13 15:27 | PC.SS ---
Patient is a 49 year old male presenting to the hospital for stroke r/o. [employer] SUPERVISOR Jalyn and [employer] EXTR[employer] SUPERVIS[employer] student Judith met with patient at bedside, role and reason for visit was explained. Patient confirmed demographic information and stated he lives at home with his and children. Patient stated in case he is unable to make medical decisions on his own he would like his Cassie to make them. 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 Patient reported his PCP is Dr. Kat tariq K[place] and his last appointment was 02/06/25. Patient stated that once he is medically clear he would like to return home and his will provide transportation. PCP: Dr. Stephens D/C: home Alternate Decision maker: Cassie Pelayo PH:[phone]
--- NOTE | 2025-02-13 16:07 | PC.NURSE ---
REPORT CALLED TO ALBINA JI. NO FURTHER QUESTIONS
--- NOTE | 2025-02-13 16:25 | PC.NURSE ---
PATIENT TAKEN TO [facility]. PATIENT WILL BE ADMITTED TO ROOM 271
[2025-02-13] MEDS: Magnesium Sulfate 4 GM Ivpb 4 GM/50 ML BAG IV (17:58)
[2025-02-13] MEDS: HEPARIN SOD INJ 5000 UNIT/ML VIAL SC (21:51)
[2025-02-13] MEDS: ATORVASTATIN CALCIUM 20 MG TABLET 40 MG PO (21:51)
[2025-02-14] VITALS: BP 119/84; PULSE 68; PULSE 77; RESP 19; TEMP 36.6; O2SAT 97
[2025-02-14 04:00] VITALS: BP 98/72; PULSE 66; PULSE 70; RESP 16; TEMP 36.2; O2SAT 97
[2025-02-14 06:00] VITALS: BMI 27.0
[2025-02-14 06:38] LABS: Basophils # (Auto) 0.1 Thou/mm3 (0.0-0.2); Basophils % (Auto) 1 % (0-2.5); Eosinophils # (Auto) 0.2 Thou/mm3 (0.0-0.5); Eosinophils % (Auto) 2 % (0-10); Hematocrit 46.8 % (41.0-53.0); Hemoglobin 16.3 g/dL (13.5-16.0); Immature Granulocytes Auto 0.03 Thou/mm3 (0.00-0.00); Lymphocytes # (Auto) 2.1 Thou/mm3 (1.0-4.8); Lymphocytes % (Auto) 30 % (10-50); Mean Corpuscular HGB Conc 34.8 g/dl (31.0-37.0); Mean Corpuscular Hemoglobin 30.8 pg (25.0-35.0); Mean Corpuscular Volume 88 fL (80-100); Monocytes # (Auto) 0.6 Thou/mm3 (0.0-0.8); Monocytes % (Auto) 9 % (0-12); Neutrophils # (Auto) 4.0 Thou/mm3 (1.8-7.7); Neutrophils % (Auto) 58 % (37-80); Nucleated Red Blood Cell # 0.00 Thou/mm3 (0.00-0.00); Nucleated Red Blood Cell % 0 /100 WBC (0); Platelet Count 218 Thou/mm3 (140-440); RDW Standard Deviation 40.4 fL (35.1-43.9); Red Blood Count 5.30 Miln/mm3 (4.50-5.90); White Blood Count 6.9 Thou/mm3 (3.8-10.6)
[2025-02-14 06:55] LABS: Alanine Aminotransferase 44 U/L (10-49); Albumin, Serum 4.2 gm/dL (3.5-5.0); Albumin/Globulin Ratio 1.9 (1.2-2.2); Alkaline Phosphatase 95 U/L (46-116); Anion Gap 7 (7-16); Aspartate Amino Transferase 26 U/L (0-34); BUN/Creatinine Ratio 10 Ratio (12-20); Bilirubin,Total 0.5 mg/dL (0.3-1.2); Blood Urea Nitrogen 11 mg/dL (9-23); Calcium 9.4 mg/dL (8.3-10.6); Calcium (Corrected) 9.4 mg/dL (8.5-10.1); Carbon Dioxide 29.6 mMol/L (20.0-31.0); Chloride 105 mMol/L (98-107); Creatinine (Component) 1.1 mg/dL (0.6-1.3); Estimated Creatinine Clearance 94.4 mL/min (>60); Globulin 2.2 gm/dL (2.3-3.5); Glucose 98 mg/dL (74-106); Magnesium 2.1 mg/dL (1.6-2.6); Osmolality,Calculated 282 (275-295); Potassium 4.8 mMol/L (3.4-5.1); Sodium 142 mMol/L (136-145); Total Protein 6.4 gm/dL (5.7-8.2); eGFR > 60 See Note
[2025-02-14 06:56] LABS: Glucose Estimated Average 103 mg/dL (80-131); Hemoglobin A1C 5.2 % Hgb (4.8-6.0)
[2025-02-14 08:00] VITALS: BP 119/75; PULSE 74; PULSE 83; RESP 16; TEMP 36.1; O2SAT 97
[2025-02-14] MEDS: ASPIRIN EC 81 MG TABEC PO (08:43)
[2025-02-14] MEDS: HEPARIN SOD INJ 5000 UNIT/ML VIAL SC (08:43)
--- NOTE | 2025-02-14 10:13 | PC.PT ---
PT eval only. Patient was xI with bed mobility, transfers, and ambulation using no AD. Patient is safe to ambulate to the bathroom and in the halls with no AD. RN made aware.
--- NOTE | 2025-02-14 12:57 | ESDS_ITS ---
Planned Discharge Date 02/14/25 DS: Providers Provider Date of admission: 02/13/25 13:48 Primary care physician: Physician No Primary/Family Admitting Provider: Maxwell Horner DO Attending Provider on Admission: Maxwell Horner DO Consults: 02/13/25 09:16 Consult to Neurology / Tele-Neurology Routine Comment: Consulting Provider: [facility] 02/13/25 13:54 Consult to Neurology / Tele-Neurology Stat Comment: Consulting Provider: Niles Cerna 02/14/25 09:00 Referral Physical Therapy Routine Comment: Physician Instructions: Attending Provider on DC: Maxwell Horner DO Discharging Provider: Dian Montanez DO DS: Diagnosis Problem List Completed Was Problem List Reviewed/Reconciled?: Yes Hospital Course Hospital Course Hospital course: Summary: Patient is a 49-year-old male with past medical history of anxiety, nicotine use, testosterone use, hyperlipidemia, cholecystectomy status post gallstone pancreatitis presented with episode of left face and arm numbness will be admitted for stroke rule out with neurology consultation and close monitoring. Teleneurology assessed patient, started on aspirin and atorvastatin [address] head and head neck CTA was negative. MRI did not show any acute infarcts. Lipid panel showed elevated cholesterol and LDL. Patient takes low dose statin at home, but will increase to 40 mg daily in view of high ASCVD score. Echo was deferred as patient had no personal or family cardiac history or history of congenital heart defects, cardiac exam was benign. Symptoms resolved upon admission, based on history most likely radiculopathy more so than TIA. Patient was medically stable upon discharge. ED Course: Vitals: BP 140/97, regular heart rate, regular respiratory rate, afebrile satting 96 on room air Labs: Largely unremarkable other than glucose of 109, magnesium 1.7, troponin less than 0.002. Urinalysis unremarkable. U tox is negative. Imaging: Chest x-ray did not show any active disease, head CT was negative, head/ neck CTA was also negative, CTA chest abdomen pelvis was largely negative other than mild splenomegaly. EKG showed sinus tachycardia without any concerning ST changes. Stroke alert was initiated in the ED as NIHSS score was 1, teleneurology assessed the patient and recommends admission and MRI brain for stroke rule out. Teleneurology did not recommend TNK use as a result of their assessment. Discharge Recommendations: Please continue all home medications as prescribed Please take atorvastatin 40mg by mouth daily for high cholesterol Follow-up with your PCP within 1 week of discharge or follow-up at the [facility] [address] [place], [place] [id number] Ask your PCP to work-up possible cervical radiculopathy which could explain your symptoms of numbness Ask your PCP to refer you to a retail sales associate bilingual to establish care If your symptoms worsen or if you develop new chest pain, shortness of breath, dizziness, severe headache or weakness - please come back to the ED immediately. Hospital Diagnoses: #Stroke/CVA rule out #Hyperlipidemia #Splenomegaly #Anxiety #Nicotine use Disposition: Safe discharge to home. Patient plan of care was discussed with the attending physician, Dr. Horner. Dian Montanez, PGY-1 Time Spent with Patient Time attestation: Total time spent providing and/or coordinating discharge services: Time spent: Greater than 30 minutes Exam Vital Signs Temp Pulse Resp BP Pulse Ox O2 Del Method 97 F 74 16 119/75 97 Room Air 02/14/25 08:00 02/14/25 08:00 02/14/25 08:00 02/14/25 08:00 02/14/25 08:00 02/14/25 08:00 Narrative Exam Physical Exam General: Awake and in no acute distress. Conversational and non-toxic appearing. HEENT: Normocephalic, atraumatic, mucous membranes moist. Heart: Regular rate and rhythm, normal S1 and S2, no murmurs appreciated. Lungs: Clear to auscultation with no wheezing or crackles. Abdomen: Soft, nondistended, nontender, positive bowel sounds. No guarding or rebound tenderness. Neurologic: Alert and oriented x3, no gross neurological deficit, and patient able to move all 4 extremities. Extremities: No edema. Skin: No rash or ecchymoses. Discharge Plan Plan Patient Disposition: HOME (Self Care) Patient condition on transfer: Stable Care Plan Goals: Please continue all home medications as prescribed Please take atorvastatin 40mg by mouth daily for high cholesterol Follow-up with your PCP within 1 week of discharge or follow-up at the [facility] [address] [place], [place] [id number] Ask your PCP to work-up possible cervical radiculopathy which could explain your symptoms of numbness Ask your PCP to refer you to a retail sales associate bilingual to establish care If your symptoms worsen or if you develop new chest pain, shortness of breath, dizziness, severe headache or weakness - please come back to the ED immediately. Prescriptions/Referrals Prescriptions/Med Rec: New atorvastatin 40 mg tablet 40 mg PO QDAY 30 Days Qty: 30 0RF Continued alprazolam 0.5 mg tablet 0.5 mg PO BID PRN (Reason: anxiety) Patient Comments: TAKE 1 TABLET BY MOUTH NEEDED Discontinued atorvastatin 10 mg tablet 10 mg PO QDAY Patient Comments: TAKE 1 TABLET BY MOUTH EVERYDAY AT BEDTIME Referrals: No Primary/Family,Physician [Primary Care Provider] Patient/Caregiver Discharge Instructions Education Materials: What Is a TIA?, Radiculopathy Cervical Print Language: Cameroonian Stand Alone Forms: Renetta Award Info., Patient Portal Info Letter Discharge Order Discharge Orders: Discharge (Routine); Ordered 02/14/25 Ordered By: Cain Monet Quality Discharge Quality Measures VTE prophylaxis MD Attestestation MD Attestation I have discussed and was present for the essential components of the discharge history, physical examination, diagnosis, and discharge treatment plan with the resident. I agree with the patient's discharge care as documented by the resident and amended herein by me. Ashu Horner DO. The patient understood all discharge instructions, all questions were answered satisfactorily. The patient was instructed to return to the Emergency Department is symptoms worsened or persisted. Patient was stable, afebrile, tolerating p.o. intake and ambulatory at time of discharge home. No antiplatelet recommended at this time, very low suspicion for actual CVA. We did uptitrate the patient's Lipitor to 40 mg daily, total cholesterol high, LDL 185 but ASCVD intermediate risk, lifestyle changes were also recommended to the patient and he understood. All questions were answered satisfactorily. Although this document has been carefully reviewed, there may still be some phonetic and other typographical errors. These errors are purely grammatical due to imperfections in the software program and should not be construed in any way to compromise the substance of the patient's medical care during this visit.
--- NOTE | 2025-02-14 15:28 | PC.SS ---
SS met with patient regarding his d/c plan. Pt is alert/oriented. Pt was admitted for Stroke R/O. Pt states his address is incorrect on his facesheet. Correct address is [address] SS has contacted Jayne from pt registration and has updated patient facesheet with correct address. Patient's contact information is correct on facesheet. Pt resides with . Pt ambulates independently without assistance or DME. Pt is ok with all ADLs. 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 Patient?s pharmacy of choice is [facility] on [address]. Pt named his , Shelby Katz medical decision maker if he is unable. Patient?s choice is to return home upon d/c. Pt states he is not diabetic and is not on dialysis. will provide transportation home. Pt has an appointment with PCP tomorrow, 02-15-25. D/C plan: Return home Next of Kin: Cassie Pelayo, phone# [phone] PCP: Kat Hanson at [facility] Address: [address] [facility] [id number]
== END 2025-02-14 11:35 | disposition home or self-care (01) | DRG 93 ==
LOC: SERX 12:31 → SERHOLD 14:45 → S2NX 16:58 → S3SX 02-14 02:09
PROVIDERS: Admitting Provider Student in an Organized Health Care Education/Training Program; Emergency Provider Emergency Medicine; Visit Provider Student in an Organized Health Care Education/Training Program
DX: R20.2 Paresthesia of skin (principal); F41.0 Panic disorder [episodic paroxysmal anxiety]; E78.5 Hyperlipidemia, unspecified; R16.1 Splenomegaly, not elsewhere classified; Z72.0 Tobacco use
CPT/HCPCS: 36415; 70450; 70496; 70498; 70544; 71045; 71275; 74174; 80053; 80307; 81001; 83036; 83735; 83880; 84484; 85025; 85610; 85730; 87502; 87811; 93005; 96372; 97161; 99285; A4649; J1644; J3475; Q9967; A9270